=== PATIENT | female | born 1975 | race Caucasian/White ===

== ENCOUNTER → 2017-11-22 | Outpatient (CLI) | payer BC ==
--- NOTE | 2017-11-24 11:49 | CT ---
EXAM DESCRIPTION: Chest w/wo Contrast : Computed Tomography. CLINICAL HISTORY: M99.88 - Other biomechanical lesions of rib cage COMPARISON: None. TECHNIQUE: Spiral-axial scans at 5.0 mm intervals through the lungs and thorax without IV contrast. 2.5 mm lung algorithm axial reconstructions. Coronal and sagittal 2.0 Mm reconstructions. No adverse reactions. Total Exam DLP: 284.87 mGy-cm. This exam was performed according to our departmental dose-optimization program which includes automated exposure control, adjustment of the mA and/or kV according to patient size and/or use of iterative reconstruction technique; to reduce radiation dose to as low as reasonably achievable (ALARA). FINDINGS: Small 2 mm focal pleural thickening posteriorly abutting the apex of the right upper lobe. Otherwise unremarkable pleura with no effusion bilaterally and no pneumothorax. Lungs are well-inflated with no abnormal nodules masses or infiltrates. Uniform enhancement in the thyroid gland. No soft tissue masses in the base of the neck. No soft tissue masses or enlarged lymph nodes in the mediastinum or hilar areas bilaterally. Bilateral axillary lymph nodes are unremarkable. Great vessels are enhancing normally. Included peritoneal space with no free fluid. Normal size and enhancement of the adrenal glands and spleen. Multiple minimally radiodense stones versus sludge in the gallbladder and questionable wall thickening. Common bile duct dilated. Included pancreas is unremarkable. Spine and shoulders are negative. Included ribs with normal density, no fracture and no displacement from sternum or thoracic vertebra. Bone island in the left humeral head. IMPRESSION: 1. No significant abnormalities in the lungs or the thoracic soft tissues. Normal enhancement. 2. No bony abnormalities or displacement of the ribs. Sternum is negative. Thoracic spine and included shoulders are unremarkable. 3. Multiple stones or moderate amount of sludge in the gallbladder with possible wall thickening. Common bile duct dilated. Right upper quadrant abdominal ultrasound should be considered. Electronically signed by: Mitch Salazar MD 11/24/2017 11:48 AM CDT
== END ==
LOC: CT 09:23
PROVIDERS: ATTEND Family Medicine
DX: M99.88 Other biomechanical lesions of rib cage (principal); K80.20 Calculus of gallbladder without cholecystitis without obstruction

== ENCOUNTER → 2018-07-01 | Outpatient (CLI) | payer BC | LOC: GMAL 15:02 | PROVIDERS: ATTEND Family Medicine | DX: D51.3 Other dietary vitamin B12 deficiency anemia (principal); D50.8 Other iron deficiency anemias ==

== ENCOUNTER → 2018-07-08 | Outpatient (CLI) | payer BC | LOC: GMAL 12:37 | PROVIDERS: ATTEND Family Medicine | DX: E55.9 Vitamin D deficiency, unspecified (principal) ==

== ENCOUNTER → 2018-08-19 | Outpatient (CLI) | payer BC | LOC: GMAL 10:33 | PROVIDERS: ATTEND Family Medicine | DX: D50.8 Other iron deficiency anemias (principal) ==

== ENCOUNTER → 2018-11-24 | Outpatient (CLI) | payer BC | LOC: GMAL 10:45 | PROVIDERS: ATTEND Family Medicine | DX: D50.8 Other iron deficiency anemias (principal) ==

== ENCOUNTER → 2020-01-11 | Outpatient (CLI) | payer BC, OTHER | LOC: GMAL 11:39 | PROVIDERS: ATTEND Family Medicine | DX: D50.9 Iron deficiency anemia, unspecified (principal) ==

== ENCOUNTER 2020-01-22 08:30 | Outpatient (CLI) | payer OTHER ==
[2020-01-22] MEDS ORDERED: IRON DEXTRAN 500 MG in SODIUM CHLORIDE 0.9% 500ML 500 ML IVPB ONE (08:54)
[2020-01-22] MEDS ORDERED: FAMOTIDINE IV PREMIX 20 MG in PREMIX BAG 1 BAG IVPB ONE (08:54)
[2020-01-22] MEDS ORDERED: ACETAMINOPHEN 325 MG TAB PO ONE (08:54)
[2020-01-22] MEDS ORDERED: diphenhydrAMINE HCL 50 MG/ML VIAL IV ONE (09:00)
== END 2020-01-26 13:32 | disposition home or self-care (01) ==
LOC: INFRM 08:30
PROVIDERS: ATTEND Family Medicine
DX: D50.8 Other iron deficiency anemias (principal)
CPT/HCPCS: 96365; 96366; 96367; 96375; J1200; J1750; J3490; J7040

== ENCOUNTER → 2020-02-26 | Outpatient (CLI) | payer OTHER | LOC: GMAL 11:07 | PROVIDERS: ATTEND Family Medicine | DX: D50.8 Other iron deficiency anemias (principal) ==

== ENCOUNTER → 2020-09-07 | Outpatient (CLI) | payer SELFPAY ==
--- NOTE | 2020-09-08 07:54 | MAM ---
EXAM DESCRIPTION: 3D Screening BILATERAL : Digital Mammography. CLINICAL HISTORY: 45 years Female screening . No complaints. Mother with ovarian cancer at age 32. No family history breast cancer. Menarche age 13. Childbirth age 26. Hysterectomy at age 45. No HRT. Prior benign left breast biopsy.. Lifetime risk of developing breast cancer (Tyrer-Cuzick model)(%): 12.7. COMPARISON: Baseline study at this facility. No prior reports available. TECHNIQUE: Bilateral CC and MLO projection full-field images, digital tomosynthesis mammographic technique. Bilateral digital 2-D full-field MLO images. CAD available for 2-D images. FINDINGS: The breast parenchymal density pattern is: Heterogeneously dense breast tissue, which may obscure small masses. Biopsy site marker associated with a 1 cm mass density, posterior superior left breast. Benign type calcification posterior right breast. Axillary nodes. Solitary microcalcifications. No skin thickening or nipple retraction No focal, stellate mass or density, focal asymmetry , and no suspicious microcalcifications right breast. IMPRESSION: BIRAD CATEGORY: 0 - INCOMPLETE- Need prior mammograms for comparison. RECOMMENDATIONS: FOLLOW-UP: Comparison with prior examination(s) when available. Written communication explaining the results and follow-up will be mailed to the patient and referring care provider. Electronically signed by: Mitch Salazar MD 09/08/2020 7:53 AM FACILITY MAINTENANCE WORKER
== END ==
LOC: MAMMO 11:09
PROVIDERS: ATTEND Obstetrics & Gynecology
DX: Z12.31 Encounter for screening mammogram for malignant neoplasm of breast (principal)